=== PATIENT | male | born 1940 | race Caucasian/White ===

== ENCOUNTER 2019-01-25 05:11 | Observation (INO) | payer MEDICARE ==
[~2019-01-25] VITALS: Ht 177.8 cm; Wt 93.0 kg
[~2019-01-25 05:11] MED LIST: ACAR50TA3 PO; ACARBOSE; ASPI-515 PO; ATORVASTATIN; GLIMEPIRIDE PO; HEPA50002 SQ; INSU100V13 SC; INSU300I SC; INSU3INS2 SC; MECL12.52 PO; METFORMIN PO; PIOG30TA23 PO; ROSU10TA25 PO; TAMS-11 PO; VITAMIN D PO; [UNRECOGNIZED DRUG - OTHER]
[2019-01-25 05:58] LABS: BASOPHILS # (AUTO) 0.02 x10^3/uL (0-0.1); BASOPHILS % (AUTO) 0 % (0-1); EOSINOPHILS % (AUTO) 1 % (1-7); LYMPHOCYTES # (AUTO) 1.81 x10^3/uL (1-3.4); LYMPHOCYTES % (AUTO) 21 % (22-44); MD NO; MEAN CORPUSCULAR HEMOGLOBIN 32.8 pg (27.5-34.5); MEAN CORPUSCULAR HGB CONC 32.8 g/dL (33.2-36.2); MEAN CORPUSCULAR VOLUME 99.9 fL (81-97); MONOCYTES # (AUTO) 0.79 x10^3/uL (0.2-0.8); MONOCYTES % (AUTO) 9 % (2-9); NEUTROPHILS # (AUTO) 6.03 x10^3/uL (1.8-6.8); NEUTROPHILS % (AUTO) 69 % (42-75); PLATELET COUNT 301 x10^3/uL (130-400); RED BLOOD COUNT 4.38 x10^6/uL (4.38-5.82); RED CELL DISTRIBUTION WIDTH 13.4 % (9.4-14.8)
[2019-01-25] MEDS ORDERED: SODIUM CHLORIDE FLUSH 10ML SYR IVF ONE (06:00)
[2019-01-25 06:02] LABS: ALANINE AMINOTRANSFERASE 37 U/L (12-78); ANION GAP 9 mmol/L (5-15); CALCIUM 9.4 mg/dL (8.5-10.1); CHLORIDE 113 mmol/L (98-107); CREATININE 2.11 mg/dL (0.7-1.3)
[2019-01-25 06:05] LABS: ALKALINE PHOSPHATASE 125 U/L (45-117); BILIRUBIN,TOTAL 0.5 mg/dL (0.2-1.0); TOTAL PROTEIN 7.8 g/dL (6.4-8.2)
[2019-01-25 06:07] LABS: MICROSCOPIC AUTO
[2019-01-25 06:09] LABS: CULTURE INDICATED? NO
--- NOTE | 2019-01-25 06:12 | NUR ---
pt going to [place] at this time.
--- NOTE | 2019-01-25 06:19 | NUR ---
pt back from [place]
--- NOTE | 2019-01-25 06:49 | NUR ---
PT DAUGH[employer] [facility] - [phone] PT SON IN [employer], [place], [place] [phone]
--- NOTE | 2019-01-25 06:58 | NUR ---
BEDSIDE REPORT TO CARON DING.
--- NOTE | 2019-01-25 07:12 | NUR ---
REPORT RECIEVED FROM TIMUR WISDOM
[2019-01-25] MEDS ORDERED: ONDANSETRON 2MG/ML, 2ML ONE (07:18)
[2019-01-25] MEDS ORDERED: MORPHINE SULFATE 4 MG/ML, 1ML ONE (07:19)
--- NOTE | 2019-01-25 07:28 | NUR ---
PT MEDICATED FOR PAIN PER EMAR. WILL REASSESS PAIN
[2019-01-25] MEDS ORDERED: ONDANSETRON 2MG/ML, 2ML IVPush ONE (07:30)
[2019-01-25] MEDS ORDERED: MORPHINE SULFATE 4 MG/ML, 1ML IVPush PRN (07:30)
[2019-01-25] MEDS ORDERED: PROMETHAZINE 25 MG/ML, 1ML IM ONE (08:00)
--- NOTE | 2019-01-25 08:38 | NUR ---
report given to TIMUR gamboa 3N
[2019-01-25 09:34] VITALS: BP 116/73
[2019-01-25] MEDS ORDERED: BISACODYL 10 MG SUPP PR PRN (12:30)
[2019-01-25] MEDS ORDERED: ONDANSETRON 2MG/ML, 2ML IVPush PRN (12:30)
[2019-01-25] MEDS ORDERED: DOCUSATE 100 MG CAPSULE PO PRN (12:30)
[2019-01-25] MEDS ORDERED: ONDANSETRON ODT 4 MG PO PRN (12:30)
[2019-01-25 12:32] VITALS: BP 101/64
[2019-01-25 12:55] LABS: HEMOGLOBIN A1C 7.3 % (4.2-6.3)
[2019-01-25 14:00] LABS: FREE T4 (FREE THYROXINE) 1.05 ng/dL (0.76-1.46)
[2019-01-25] MEDS: SODIUM CHLORIDE 0.9% 1,000 ML IV SCH (15:24)
[2019-01-25] MEDS: INSULIN LISPRO 100 UNITS/ML, PEN SQ-INSULIN SCH ×2 (16:00→19:58)
[2019-01-25] MEDS: morphine SULFATE 10 MG/ML, 1ML IVPush PRN (17:34)
[2019-01-25] MEDS: CEFTRIAXONE PMX 2GM/50ML 50 ML IV SCH (19:01)
[2019-01-25 19:51] VITALS: BP 109/73
[2019-01-25] MEDS: HEPARIN 5,000 UNITS/ML, 1ML SQ SCH (19:55)
[2019-01-26] MEDS: SODIUM CHLORIDE 0.9% 1,000 ML IV SCH ×4 (00:32→20:39)
[2019-01-26] MEDS: morphine SULFATE 10 MG/ML, 1ML IVPush PRN ×2 (00:32→21:33)
[2019-01-26 02:30] VITALS: BP 121/77
[2019-01-26 05:40] LABS: BASOPHILS # (AUTO) 0.03 x10^3/uL (0-0.1); BASOPHILS % (AUTO) 0 % (0-1); EOSINOPHILS % (AUTO) 1 % (1-7); LYMPHOCYTES # (AUTO) 2.35 x10^3/uL (1-3.4); LYMPHOCYTES % (AUTO) 28 % (22-44); MD NO; MEAN CORPUSCULAR HEMOGLOBIN 33.4 pg (27.5-34.5); MEAN CORPUSCULAR HGB CONC 32.9 g/dL (33.2-36.2); MEAN CORPUSCULAR VOLUME 101.6 fL (81-97); MEAN PLATELET VOLUME 8.2 fL (7.4-10.4); MONOCYTES # (AUTO) 0.81 x10^3/uL (0.2-0.8); MONOCYTES % (AUTO) 10 % (2-9); NEUTROPHILS # (AUTO) 5.23 x10^3/uL (1.8-6.8); NEUTROPHILS % (AUTO) 61 % (42-75); PLATELET COUNT 278 x10^3/uL (130-400); RED BLOOD COUNT 3.85 x10^6/uL (4.38-5.82); RED CELL DISTRIBUTION WIDTH 14.2 % (9.4-14.8)
[2019-01-26 05:49] LABS: ANION GAP 6 mmol/L (5-15); CALCIUM 8.5 mg/dL (8.5-10.1); CHLORIDE 115 mmol/L (98-107); CREATININE 1.92 mg/dL (0.7-1.3)
[2019-01-26] MEDS: INSULIN LISPRO 100 UNITS/ML, PEN SQ-INSULIN SCH ×4 (07:00→20:29)
[2019-01-26 08:24] VITALS: BP 125/70
[2019-01-26] MEDS: ASPIRIN 81 MG TABLET EC PO SCH (09:24)
[2019-01-26] MEDS: TAMSULOSIN 0.4 MG CAP.ER.24H PO SCH (09:24)
[2019-01-26] MEDS: HEPARIN 5,000 UNITS/ML, 1ML SQ SCH ×2 (09:25→20:28)
[2019-01-26 12:10] VITALS: BP 132/68
[2019-01-26] MEDS: CEFTRIAXONE PMX 2GM/50ML 50 ML IV SCH (17:20)
[2019-01-26 19:05] VITALS: BP 114/71
[2019-01-27 01:11] VITALS: BP 129/60
[2019-01-27 08:00] VITALS: BP 143/77
[2019-01-27] MEDS: TAMSULOSIN 0.4 MG CAP.ER.24H PO SCH (08:50)
[2019-01-27] MEDS: HEPARIN 5,000 UNITS/ML, 1ML SQ SCH (08:50)
[2019-01-27] MEDS: ASPIRIN 81 MG TABLET EC PO SCH (08:50)
[2019-01-27] MEDS: INSULIN LISPRO 100 UNITS/ML, PEN SQ-INSULIN SCH ×2 (08:51→12:10)
[2019-01-27 09:36] LABS: BASOPHILS # (AUTO) 0.04 x10^3/uL (0-0.1); BASOPHILS % (AUTO) 1 % (0-1); EOSINOPHILS # (AUTO) 0.05 x10^3/uL (0-0.4); EOSINOPHILS % (AUTO) 1 % (1-7); LYMPHOCYTES # (AUTO) 1.34 x10^3/uL (1-3.4); LYMPHOCYTES % (AUTO) 19 % (22-44); MD NO; MEAN CORPUSCULAR HEMOGLOBIN 32.7 pg (27.5-34.5); MEAN CORPUSCULAR HGB CONC 33.1 g/dL (33.2-36.2); MEAN PLATELET VOLUME 7.9 fL (7.4-10.4); MONOCYTES # (AUTO) 0.54 x10^3/uL (0.2-0.8); MONOCYTES % (AUTO) 7 % (2-9); NEUTROPHILS # (AUTO) 5.26 x10^3/uL (1.8-6.8); NEUTROPHILS % (AUTO) 73 % (42-75); PLATELET COUNT 267 x10^3/uL (130-400); RED CELL DISTRIBUTION WIDTH 13.3 % (9.4-14.8)
[2019-01-27 09:44] LABS: CHLORIDE 115 mmol/L (98-107)
[2019-01-27 09:56] LABS: ANION GAP 7 mmol/L (5-15); CALCIUM 8.9 mg/dL (8.5-10.1); CREATININE 2.02 mg/dL (0.7-1.3)
[2019-01-27] MEDS ORDERED: CEFD300C37 PO (10:09)
[2019-01-27] MEDS ORDERED: HYDR-3240 PO (10:09)
== END 2019-01-27 14:16 | disposition home or self-care (01) ==
LOC: ED 05:37 → INTOOBSV 08:01 → EDIP 08:01 → 3NE 09:07
PROVIDERS: ADMIT Internal Medicine; ATTEND Internal Medicine
DX: N12 Tubulo-interstitial nephritis, not specified as acute or chronic (principal); E87.2 Acidosis; N13.30 Unspecified hydronephrosis; N17.9 Acute kidney failure, unspecified; N18.9 Chronic kidney disease, unspecified; E11.22 Type 2 diabetes mellitus with diabetic chronic kidney disease; R94.6 Abnormal results of thyroid function studies; N23 Unspecified renal colic; E86.0 Dehydration; N40.0 Benign prostatic hyperplasia without lower urinary tract symptoms; E66.2 Morbid (severe) obesity with alveolar hypoventilation; M48.56XA Collapsed vertebra, not elsewhere classified, lumbar region, initial encounter for fracture; R31.29 Other microscopic hematuria; D53.9 Nutritional anemia, unspecified; Z68.29 Body mass index [BMI] 29.0-29.9, adult; Z87.442 Personal history of urinary calculi; Z88.5 Allergy status to narcotic agent
CPT/HCPCS: 36415; 74176; 76770; 80048; 80053; 81001; 82607; 82962; 83036; 83690; 84439; 84443; 85025; 87086; 96361; 96365; 96366; 96372; 96375; 96376; 97163; 97165; 99284; G0378; J0696; J1644; J1815; J2270; J2405; J7030; 96374